=== PATIENT | female | born 1950 | race Caucasian/White ===

== ENCOUNTER 2022-03-24 06:53 | Inpatient (IN) ==
[2022-03-24] MEDS ORDERED: Celecoxib 100 MG CAPSULE PO ONE (07:00)
[2022-03-24] MEDS ORDERED: Acetaminophen IV 1,000 MG/100 ML BAG IVPB ONE (07:00)
[2022-03-24] MEDS ORDERED: CeFAZolin Syr 2,000MG/20 ML 2,000 MG/20 ML SYRINGE IVPB ONE (07:43)
[2022-03-24] MEDS ORDERED: Ringers Solution, Lactated 1,000 ML IVC SCH ×2 (07:45→14:58)
[2022-03-24] MEDS ORDERED: Gentamicin 340 MG in 0.9 % Sodium Chloride 100 ML IVPB ONE (07:45)
[2022-03-24] MEDS ORDERED: *HR* OxyCODONE Immed Rel 5 MG TABLET PO PRN (08:00)
[2022-03-24] MEDS ORDERED: *HR* FentaNYL (PF) 100 MCG/2 ML VIAL IVP PRN (08:00)
[2022-03-24] MEDS ORDERED: *HR* HYDROmorphone PF 0.5 MG/0.5 ML SYRINGE IVP PRN (08:00)
[2022-03-24] MEDS ORDERED: Ondansetron 4 MG/2 ML VIAL IVP PRN ×2 (08:00→14:58)
[2022-03-24] MEDS ORDERED: Ropivacaine/PF 0.5% 30 ML VIAL ONE (08:12)
[2022-03-24] MEDS ORDERED: ROPIVACAINE/PF/NS 0.25% 1 EACH SYRINGE INTRAART ONE (08:12)
[2022-03-24] MEDS: Famotidine 20 MG TABLET PO ONE ×2 (08:13→08:14)
[2022-03-24] MEDS ORDERED: *HR* Propofol 200 MG/20 ML VIAL IVP ONE (08:43)
[2022-03-24] MEDS ORDERED: Lidocaine -MPF 2% 5 ML VIAL ONE (08:43)
[2022-03-24] MEDS ORDERED: Ondansetron 4 MG/2 ML VIAL ONE (08:43)
[2022-03-24] MEDS ORDERED: *HR* Succinylcholine 200 MG/10 ML VIAL IVP ONE (08:44)
[2022-03-24] MEDS ORDERED: Lidocaine HCL 4 ML Topical Solution (Laryng-O-Jet Kit Sterile Pak) TP ONE (08:46)
[2022-03-24] MEDS ORDERED: *HR* Midazolam HCl 2 MG/2 ML VIAL ONE (08:53)
[2022-03-24] MEDS ORDERED: *HR* FentaNYL (PF) 100 MCG/2 ML VIAL ONE (08:53)
[2022-03-24] MEDS ORDERED: Povidone-Iodine 45 ML, Sodium Chloride IRRigation 1,000 ML IR ONE (09:30)
[2022-03-24] MEDS ORDERED: TOTAL JOINT MIXTURE (100ML) INTRAART ONE (09:30)
[2022-03-24] MEDS ORDERED: Ethanol\\Acetic Acid\\Na Ace\\Ben 1,000 ML IRRIG.SOLN IR ONE (09:50)
[2022-03-24] MEDS ORDERED: Vancomycin 1,000 MG VIAL ONE (09:51)
[2022-03-24] MEDS ORDERED: Tobramycin Sulf (Sterile) 1.2 GM VIAL ONE (09:51)
[2022-03-24] MEDS ORDERED: Tranexamic Acid 1,000 MG/10 ML VIAL ONE (11:00)
[2022-03-24] MEDS ORDERED: EPHEDrine sulfate 50 MG/10 ML VIAL IVP ONE ×3 (11:15→15:00)
[2022-03-24] MEDS ORDERED: *HR* Phenylephrine 10 MG/ML VIAL ONE (12:32)
[2022-03-24] MEDS ORDERED: *HR* Vasopressin 20 UNIT/ML VIAL ONE (13:00)
[2022-03-24 14:55] LABS: Basophils # 0.1 K/mcL (0.0-0.2); Basophils % 0.7 %; Eosinophils # 0.1 K/mcL (0.0-0.6); Eosinophils % 0.8 %; Hemoglobin 9.8 g/dL (11.5-15.4); Immature Granulocytes % 0.8 % (0-4); Lymphocytes # 1.1 K/mcL (0.6-4.6); Lymphocytes % 14.1 %; Mean Corpuscular HGB Conc 33.8 g/dL (31.6-35.5); Mean Corpuscular Hemoglobin 30.4 pg (28.0-33.3); Mean Corpuscular Volume 90.1 fL (83.0-100.0); Monocytes # 0.1 K/mcL (0.0-1.3); Monocytes % 1.8 %; Neutrophils # 6.3 K/mcL (1.6-8.9); Platelet Count 241 K/mcL (140-400); Red Blood Count 3.22 M/mcL (3.82-4.97); Red Cell Distribution Width 11.9 % (11.5-14.5); Segmented Neutrophils % 81.8 %; White Blood Count 7.7 K/mcL (4.3-11.1)
[2022-03-24] MEDS ORDERED: Naloxone 0.4 MG/ML INJ IVP PRN (14:58)
[2022-03-24] MEDS ORDERED: *HR* Promethazine 25 MG/ML VIAL IM PRN (14:58)
[2022-03-24] MEDS ORDERED: MOM Conc 10 ML UD.LIQ PO PRN (14:58)
[2022-03-24] MEDS ORDERED: Insulin Regular, Human 100 UNIT/ML SUBQ ONE ×2 (14:58→15:09)
[2022-03-24] MEDS ORDERED: Sennosides 8.6 MG TABLET PO PRN (14:58)
[2022-03-24] MEDS ORDERED: Insulin Regular, Human 100 UNIT/ML ONE (15:17)
[2022-03-24] MEDS: *HR* HYDROmorphone PF 0.5 MG/0.5 ML SYRINGE IVP PRN ×2 (15:19→15:34)
[2022-03-24] MEDS: Ketorolac 30 MG/ML VIAL IVP SCH (17:58)
[2022-03-24] MEDS: Ascorbic Acid 500 MG TABLET PO SCH (17:58)
[2022-03-24] MEDS: Aspirin Enteric Coated 81 MG Tablet PO SCH (18:08)
[2022-03-24] MEDS: CeFAZolin 2 GM/120 ML BAG IVPB SCH ×2 (18:08→23:40)
[2022-03-25] MEDS ORDERED: Gentamicin 340 MG in 0.9 % Sodium Chloride 100 ML IVPB ONE (04:00)
[2022-03-25 05:30] LABS: Basophils % 0.1 %; Hemoglobin 8.9 g/dL (11.5-15.4); Immature Granulocytes % 0.4 % (0-4); Lymphocytes % 6.2 %; Mean Corpuscular HGB Conc 34.2 g/dL (31.6-35.5); Mean Corpuscular Hemoglobin 30.8 pg (28.0-33.3); Mean Platelet Volume 9.4 fL (9.4-12.4); Monocytes # 0.6 K/mcL (0.0-1.3); Neutrophils # 13.9 K/mcL (1.6-8.9); Platelet Count 237 K/mcL (140-400); Red Blood Count 2.89 M/mcL (3.82-4.97); Red Cell Distribution Width 12.2 % (11.5-14.5); Segmented Neutrophils % 89.3 %
[2022-03-25 05:44] LABS: White Blood Count 15.6 K/mcL (4.3-11.1)
[2022-03-25 06:05] LABS: Calcium 8.7 mg/dL (8.6-10.3); Potassium 4.6 mEq/L (3.5-5.1)
[2022-03-25] MEDS: Ketorolac 30 MG/ML VIAL IVP SCH ×5 (07:31→23:43)
[2022-03-25] MEDS: CeFAZolin 2 GM/120 ML BAG IVPB SCH ×3 (07:49→23:43)
[2022-03-25] MEDS: *HR* Metformin 500 MG TABLET PO SCH (07:49)
[2022-03-25] MEDS: Aspirin Enteric Coated 81 MG Tablet PO SCH ×2 (07:49→21:50)
[2022-03-25] MEDS: Ascorbic Acid 500 MG TABLET PO SCH ×2 (07:50→16:38)
[2022-03-25] MEDS: Multivit/Ca/Min/Fe/FA 1 TAB TABLET PO SCH (07:50)
[2022-03-25] MEDS: PIROXICAM 10 MG PO SCH (07:51)
[2022-03-25] MEDS ORDERED: Cholecalciferol (D-3) 1,000 UNIT (25MCG) TABLET PO SCH (09:00)
[2022-03-25] MEDS ORDERED: NON-FORMULARY MEDICATION 1 EACH EACH (Amlodipine Besylate/Benazepril [Lotrel 5-10 Mg Capsu PO SCH (09:00)
[2022-03-25] MEDS: lisinopriL 10 MG TABLET PO SCH (11:52)
[2022-03-25] MEDS: amLODIPine 5 MG TABLET PO SCH (11:52)
[2022-03-25] MEDS: *HR* OxyCODONE Immed Rel 5 MG TABLET PO PRN ×2 (17:15→21:50)
[2022-03-26] MEDS: *HR* OxyCODONE Immed Rel 5 MG TABLET PO PRN ×4 (02:08→20:25)
[2022-03-26 05:07] LABS: Basophils # 0.1 K/mcL (0.0-0.2); Basophils % 0.5 %; Eosinophils # 0.2 K/mcL (0.0-0.6); Eosinophils % 1.9 %; Hematocrit 25.4 % (35.3-44.9); Hemoglobin 8.6 g/dL (11.5-15.4); Immature Granulocytes % 0.4 % (0-4); Lymphocytes # 1.9 K/mcL (0.6-4.6); Lymphocytes % 16.3 %; Mean Corpuscular HGB Conc 33.9 g/dL (31.6-35.5); Mean Corpuscular Hemoglobin 30.8 pg (28.0-33.3); Mean Platelet Volume 9.3 fL (9.4-12.4); Monocytes # 0.7 K/mcL (0.0-1.3); Monocytes % 6.4 %; Neutrophils # 8.5 K/mcL (1.6-8.9); Platelet Count 220 K/mcL (140-400); Red Blood Count 2.79 M/mcL (3.82-4.97); Red Cell Distribution Width 12.3 % (11.5-14.5); Segmented Neutrophils % 74.5 %; White Blood Count 11.4 K/mcL (4.3-11.1)
[2022-03-26 05:26] LABS: Calcium 8.2 mg/dL (8.6-10.3)
[2022-03-26] MEDS: Ketorolac 30 MG/ML VIAL IVP SCH ×4 (06:18→23:29)
[2022-03-26] MEDS ORDERED: *HR* OxyCODONE Immed Rel 5 MG TABLET PO PRN (07:11)
[2022-03-26] MEDS: CeFAZolin 2 GM/120 ML BAG IVPB SCH ×3 (07:45→23:30)
[2022-03-26] MEDS: *HR* Metformin 500 MG TABLET PO SCH (07:47)
[2022-03-26] MEDS: Aspirin Enteric Coated 81 MG Tablet PO SCH ×2 (07:47→20:25)
[2022-03-26] MEDS: Multivit/Ca/Min/Fe/FA 1 TAB TABLET PO SCH (07:47)
[2022-03-26] MEDS: Ascorbic Acid 500 MG TABLET PO SCH ×2 (07:47→15:58)
[2022-03-26] MEDS: PIROXICAM 10 MG PO SCH (07:48)
[2022-03-26] MEDS: amLODIPine 5 MG TABLET PO SCH (13:01)
[2022-03-26] MEDS: lisinopriL 10 MG TABLET PO SCH (13:01)
[2022-03-27] MEDS: *HR* OxyCODONE Immed Rel 5 MG TABLET PO PRN (06:21)
[2022-03-27] MEDS: Ketorolac 30 MG/ML VIAL IVP SCH (06:22)
[2022-03-27] MEDS: Multivit/Ca/Min/Fe/FA 1 TAB TABLET PO SCH (07:57)
[2022-03-27] MEDS: Aspirin Enteric Coated 81 MG Tablet PO SCH (07:57)
[2022-03-27] MEDS: *HR* Metformin 500 MG TABLET PO SCH (07:57)
[2022-03-27] MEDS: Ascorbic Acid 500 MG TABLET PO SCH (07:57)
[2022-03-27] MEDS: CeFAZolin 2 GM/120 ML BAG IVPB SCH (07:57)
[2022-03-27] MEDS: amLODIPine 5 MG TABLET PO SCH (07:57)
[2022-03-27] MEDS: lisinopriL 10 MG TABLET PO SCH (07:57)
[2022-03-27] MEDS: PIROXICAM 10 MG PO SCH (07:59)
[2022-03-27 10:06] VITALS: BP 144/68; PULSE 71; TEMP 97.6; O2SAT 95
[2022-03-31] MEDS ORDERED: Diclofenac Sodium (24 HR) 100 MG TABLET PO SCH (09:00)
== END 2022-03-27 14:37 | disposition home health service (06) | DRG 467 ==
LOC: SDCAOSI 06:53 → 4WAOSI 16:01
PROVIDERS: ADMIT Orthopaedic Surgery; ATTEND Orthopaedic Surgery